=== PATIENT | male | born 1945 | race Caucasian/White ===

== ENCOUNTER → 2016-06-24 | Outpatient (CLI) | payer OTHER ==
[~2016-06-24] MED LIST: ASPCH81X PO; CYAN10005 PO; LATA0.009 OPB; LEVO75TA PO; LISI5TAB3 PO; LORA10CA2 PO; MULT-190 PO; MULTTAB58 PO; OMEG10002 PO; POTA550T4 PO; SIMV20TA2 PO; TRIA1SPR9 NAE
[2016-06-24 11:06] LABS: BASO % 0.9 %; BASO ABS # 0.04 K/uL (0-0.2); COMPLETE YES; EOS % 4.5 %; HEMATOCRIT 42.6 % (42-52); IG% 0.5 %; MEAN CELL VOLUME 85.4 fL (80-100); MEAN CORPUSCULAR HEMOGLOBIN 29.3 pg (25-34); MEAN CORPUSCULAR HGB CONC 34.3 g/dl (32-36); MEAN PLATELET VOLUME 10.5 fL (7.4-10.4); NEUT % 46.1 %; PLATELET COUNT 205 K/uL (130-400); RED BLOOD COUNT 4.99 M/uL (4.7-6.1); WHITE BLOOD COUNT 4.25 K/uL (4.8-10.8)
[2016-06-24 11:46] LABS: ALB/GLOB RATIO 1.4 (0.9-2); ALKALINE PHOSPHATASE 42 U/L (45-117); ALT/SGPT 42 U/L (12-78); AST/SGOT 26 U/L (15-37); BLOOD UREA NITROGEN 26 mg/dl (7-18); BUN/CREATININE RATIO 27.7 (10-20); CALCIUM 8.9 mg/dl (8.5-10.1); CARBON DIOXIDE 24 mmol/L (21-32); CHLORIDE 106 mmol/L (98-107); CHOLESTEROL 169 mg/dl (0-200); CHOLESTEROL/HDL RATIO 3.1; CREATININE 0.94 mg/dl (0.60-1.40); GLUCOSE 98 mg/dl (70-99); HDL CHOLESTEROL 54 mg/dl; LDL CHOLESTEROL CALCULATED 100 mg/dl; POTASSIUM 4.1 mmol/L (3.5-5.1); SODIUM 137 mmol/L (136-145); TRIGLYCERIDES 74 mg/dl (0-150); VERY LOW DENSITY LIPOPROT CALC 15 mg/dl
== END | disposition home or self-care (01) ==
LOC: C.LAB1850 10:07
PROVIDERS: ATTEND Internal Medicine
DX: E78.5 Hyperlipidemia, unspecified (principal); E03.9 Hypothyroidism, unspecified; I10 Essential (primary) hypertension; Z12.5 Encounter for screening for malignant neoplasm of prostate

== ENCOUNTER → 2017-01-13 | Outpatient (CLI) | payer OTHER ==
[2017-01-13 12:28] LABS: ALT/SGPT 37 U/L (12-78); AST/SGOT 20 U/L (15-37); BLOOD UREA NITROGEN 28 mg/dl (7-18); BUN/CREATININE RATIO 25.3 (10-20); CALCIUM 9.2 mg/dl (8.5-10.1); CARBON DIOXIDE 27 mmol/L (21-32); CHLORIDE 109 mmol/L (98-107); GLUCOSE 115 mg/dl (70-99); POTASSIUM 4.4 mmol/L (3.5-5.1); SODIUM 142 mmol/L (136-145)
[2017-01-13 12:40] LABS: ALB/GLOB RATIO 1.5 (0.9-2); ALKALINE PHOSPHATASE 61 U/L (45-117)
== END | disposition home or self-care (01) ==
LOC: C.LAB1850 10:52
PROVIDERS: ATTEND Internal Medicine
DX: E03.9 Hypothyroidism, unspecified (principal); I10 Essential (primary) hypertension

== ENCOUNTER → 2017-01-27 | Outpatient (CLI) | payer OTHER ==
--- NOTE | 2017-01-27 12:58 | DIAGNOSTIC IMAGING REPORT ---
CT LUNG SCREENING, LOW DOSE WITH COMPUTER-AIDED DETECTION (CAD) CLINICAL HISTORY: Smoker. Lung screening examination. COMPARISON STUDY: Chest x-ray dated 10/25/2013 CT DOSE: 83.49 mGy.cm TECHNIQUE: Low-dose helical CT was acquired without intravenous contrast from lung apices to bases and reconstructed at 2.5 mm every 2 mm. CAD was utilized for this study. A dose lowering technique was utilized adhering to the principles of ALARA. FINDINGS: Thyroid: Imaged portions of the thyroid gland are normal in appearance. Thoracic aorta: The thoracic aorta is normal in course and caliber, noting standard 3 vessel arch anatomy. Heart: There are minor coronary artery calcifications. Lungs and pleural spaces: No pleural effusions are visualized. There is no focal pulmonary consolidation. There are areas of scar/atelectatic change within the lingula. Left lower lobe pancake-like perifissural nodules are not felt to be of clinical significance. Mediastinum: There is no mediastinal lymphadenopathy. Dee: Clear. Axilla: Clear. Upper abdomen: Partially visualized upper abdominal viscera is within normal limits. Skeletal structures: There are no lytic or blastic osseous lesions. IMPRESSION: No suspicious pulmonary nodules identified. 12 month screening follow-up is recommended. CAD FINDINGS: Overall Lung RADS Category: 1 Lung RADS Management Recommendation: Lung-RADS 1: Continue annual screening in 12 months. Lung RADS Follow Up Date: 2018-01-27 Lung RADS Nodule ID: Electronically signed by: Issac Sexton M.D. 01/27/2017 12:56 PM Dictated Date/Time: 01/27/2017 12:49 PM
== END | disposition home or self-care (01) ==
LOC: C.CTS 12:21
PROVIDERS: ATTEND Internal Medicine
DX: Z12.2 Encounter for screening for malignant neoplasm of respiratory organs (principal); Z87.891 Personal history of nicotine dependence

== ENCOUNTER → 2017-08-24 | Outpatient (CLI) | payer OTHER ==
[2017-08-24 13:18] LABS: BASO % 1.2 %; BASO ABS # 0.06 K/uL (0-0.2); EOS % 3.7 %; EOS ABS # 0.18 K/uL (0-0.5); HEMATOCRIT 42.1 % (42-52); HEMOGLOBIN 14.6 g/dL (14.0-18.0); IG# 0.02 K/uL (0.00-0.02); LYMPH % 32.9 %; LYMPH ABS # 1.59 K/uL (1.2-3.4); MEAN CELL VOLUME 84.9 fL (80-100); MEAN CORPUSCULAR HEMOGLOBIN 29.4 pg (25-34); MEAN CORPUSCULAR HGB CONC 34.7 g/dl (32-36); MEAN PLATELET VOLUME 10.2 fL (7.4-10.4); MONO % 10.8 %; MONO ABS # 0.52 K/uL (0.11-0.59); NEUT ABS # 2.46 K/uL (1.4-6.5); PLATELET COUNT 199 K/uL (130-400); RED CELL DISTRIBUTION WIDTH CV 13.2 % (11.5-14.5); RED CELL DISTRIBUTION WIDTH SD 40.7 fL (36.4-46.3); WHITE BLOOD COUNT 4.83 K/uL (4.8-10.8)
[2017-08-24 14:49] LABS: ALBUMIN 4.1 gm/dl (3.4-5.0); AST/SGOT 26 U/L (15-37); BLOOD UREA NITROGEN 22 mg/dl (7-18); CALCIUM 9.1 mg/dl (8.5-10.1); CARBON DIOXIDE 26 mmol/L (21-32); CHOLESTEROL 161 mg/dl (0-200); CREATININE 1.16 mg/dl (0.60-1.40); GLUCOSE 82 mg/dl (70-99); POTASSIUM 4.4 mmol/L (3.5-5.1); SODIUM 138 mmol/L (136-145)
[2017-08-24 15:01] LABS: ALKALINE PHOSPHATASE 46 U/L (45-117); ALT/SGPT 42 U/L (12-78); LDL CHOLESTEROL CALCULATED 87 mg/dl; TOTAL PROTEIN 7.1 gm/dl (6.4-8.2)
== END | disposition home or self-care (01) ==
LOC: C.LAB1850 11:53
PROVIDERS: ATTEND Internal Medicine
DX: I10 Essential (primary) hypertension (principal); E03.9 Hypothyroidism, unspecified